=== PATIENT | male | born 1970 | race Hispanic/Latino ===

== ENCOUNTER 2019-08-17 18:16 | Emergency (ER) | payer OTHER ==
--- NOTE | 2019-08-17 20:03 | EDPHYS ---
Physician Documentation [facility] Name: Nellie Partida Age: 49 yrs Sex: Male : 1970 Arrival Date: 08/17/2019 Time: 18:17 Bed 18 Private MD: ED Physician Naveed Martinez HPI: 08/17 00:21 This 49 yrs old Male presents to ER via Ambulatory with complaints of Facial kb Bumps. 00:21 The patient presents with an abscess of the chin. Description: swollen. Onset: The kb symptoms/episode began/occurred last week. Possible cause(s): unknown. Associated signs and symptoms: Pertinent positives: swelling, Pertinent negatives: discharge, drainage, erythema, foreign body sensation, fever, headache, nausea, shortness of breath, vomiting. Modifying factors: the symptoms are alleviated by nothing, the symptoms are aggravated by nothing. Severity of symptoms: At their worst the symptoms were mild, in the emergency department the symptoms are unchanged. The patient has not experienced similar symptoms in the past. The patient has not recently seen a physician. Pt reports he noticed some bumps on his chin over the last week. States he was stung by a wasp on his upper lip last week. States it started out looking like ingrown hair so he plucked those. denies drainage or fever. concerned about infection. Historical: - Allergies: 08/16 18:35 No Known Allergies; iw - Home Meds: 18:35 unknown diabetic medication [Active]; iw - PMHx: 18:35 Diabetes - NIDDM; Kidney stones; iw - PSHx: 18:35 None; iw - Immunization history:: Adult Immunizations up to date. - Social history:: Smoking status: Patient reports the use of cigarette tobacco products, denies chronic smoking, but will smoke occasionally. ROS: 08/17 00:19 Constitutional: Negative for fever, chills, and weight loss, Cardiovascular: Negative kb for chest pain, palpitations, and edema, Respiratory: Negative for shortness of breath, cough, wheezing, and pleuritic chest pain, Abdomen/GI: Negative for abdominal pain, nausea, vomiting, diarrhea, and constipation, Back: Negative for injury and pain, MS/Extremity: Negative for injury and deformity, Neuro: Negative for headache, weakness, numbness, tingling, and seizure. Skin: Positive for abscess, of the chin. Exam: 00:19 Constitutional: This is a well developed, well nourished patient who is awake, alert, kb and in no acute distress. Head/Face: Normocephalic, atraumatic. Chest/axilla: Normal chest wall appearance and motion. Nontender with no deformity. No lesions are appreciated. Cardiovascular: Regular rate and rhythm with a normal S1 and S2. No gallops, murmurs, or rubs. Normal PMI, no JVD. No pulse deficits. Respiratory: Lungs have equal breath sounds bilaterally, clear to auscultation and percussion. No rales, rhonchi or wheezes noted. No increased work of breathing, no retractions or nasal flaring. Abdomen/GI: Soft, non-tender, with normal bowel sounds. No distension or tympany. No guarding or rebound. No evidence of tenderness throughout. MS/ Extremity: Pulses equal, no cyanosis. Neurovascular intact. Full, normal range of motion. Neuro: Awake and alert, GCS 15, oriented to person, place, time, and situation. Cranial nerves II-XII grossly intact. Motor strength 5/5 in all extremities. Sensory grossly intact. Cerebellar exam normal. Normal gait. 00:19 Skin: abscess, that is small, of the chin, 4 small areas of induration, no fluctuance or surrounding cellulitis. Vital Signs: 06/04 18:32 BP 153 / 93; Pulse 100; Resp 18 S; Temp 98.4; Pulse Ox 98% on R/A; Weight 104.33 kg; iw Height 5 ft. 9 in. (175.26 cm); 19:47 BP 133 / 93; Pulse 93; Resp 16 S; Pulse Ox 98% on R/A; ca1 18:32 Body Mass Index 33.96 (104.33 kg, 175.26 cm) iw MDM: 19:35 Patient medically screened. kb 20:01 Data reviewed: vital signs, nurses notes. Data interpreted: Pulse oximetry: on room air kb is 98 %. Interpretation: normal. Counseling: I had a detailed discussion with the patient and/or guardian regarding: the historical points, exam findings, and any diagnostic results supporting the discharge/admit diagnosis, the need for outpatient follow up, a family practitioner, to return to the emergency department if symptoms worsen or persist or if there are any questions or concerns that arise at home. Administered Medications: 20:07 Drug: Bactrim (160 mg-800 mg (DS) 1 tablet Route: PO; ca1 20:18 Follow up: Response: No adverse reaction ca1 Disposition: 08/17 01:52 Co-signature as Attending Physician, Naveed Martinez MD. pk Disposition: 08/17/19 20:02 Discharged to Home. Impression: Cutaneous abscess of face - chin. - Condition is Stable. - Discharge Instructions: Skin Abscess, [id number]. - Prescriptions for Bactrim DS 800- 160 mg Oral Tablet - take 1 tablet by ORAL route every 12 hours for 10 days; 20 tablet. - Medication Reconciliation Form, Thank You Letter, Antibiotic Education, Prescription Opioid Use form. - Follow up: Emergency Department; When: As needed; Reason: Worsening of condition. Follow up: Private Physician; When: 2 - 3 days; Reason: Recheck today's complaints, Continuance of care, Re-evaluation by your physician. Signatures: Maribell Hernandez, SENIOR SQL SERVER DBA-C SENIOR SQL SERVER DBA-Naveed Delgado MD MD pkl Mari Valdez RN RN iw Tika Ott RN RN ls4 Cheryle Hector RN RN ca1 Corrections: (The following items were deleted from the chart) 08/16 20:18 20:02 08/17/2019 20:02 Discharged to Home. Impression: Cutaneous abscess of face - ls4 chin. Condition is Stable. Forms are Medication Reconciliation Form, Thank You Letter, Antibiotic Education, Prescription Opioid Use. Follow up: Emergency Department; When: As needed; Reason: Worsening of condition. Follow up: Private Physician; When: 2 - 3 days; Reason: Recheck today's complaints, Continuance of care, Re-evaluation by your physician. kb
--- NOTE | 2019-08-17 20:03 | ER ---
Nurse's Notes [facility] Name: Nellie Partida Age: 49 yrs Sex: Male : 1970 Arrival Date: 08/17/2019 Time: 18:17 Bed 18 Private MD: Diagnosis: Cutaneous abscess of face-chin Presentation: 08/16 18:32 Chief complaint: Patient states: has bumps on chin X 3 days, thought it was ingrown iw hairs, tender to touch. Coronavirus screen: Proceed with normal triage. Patient denies a cough. Patient denies shortness of breath or difficulty breathing. Patient denies measured and/or subjective temperature greater than 100.4F prior to today's visit. Patient denies travel on a cruise ship or to a country the [facility] currently lists as an affected area. Patient denies contact with known and/or suspected case of COVID-19. Ebola Screen: Patient negative for fever greater than or equal to 101.5 degrees Fahrenheit, and additional compatible Ebola Virus Disease symptoms Patient denies exposure to infectious person. Patient denies travel to an Ebola-affected area in the 21 days before illness onset. No symptoms or risks identified at this time. Initial Sepsis Screen: Does the patient meet any 2 criteria? No. Patient's initial sepsis screen is negative. Does the patient have a suspected source of infection? No. Patient's initial sepsis screen is negative. Risk Assessment: Do you want to hurt yourself or someone else? Patient reports no desire to harm self or others. Onset of symptoms was August 14, 2019. 18:32 Method Of Arrival: Ambulatory 18:32 Acuity: SEBLE 4 iw Historical: - Allergies: 18:35 No Known Allergies; iw - Home Meds: 18:35 unknown diabetic medication [Active]; iw - PMHx: 18:35 Diabetes - NIDDM; Kidney stones; iw - PSHx: 18:35 None; iw - Immunization history:: Adult Immunizations up to date. - Social history:: Smoking status: Patient reports the use of cigarette tobacco products, denies chronic smoking, but will smoke occasionally. Screenin:43 Abuse screen: Denies threats or abuse. Denies injuries from another. Nutritional ca1 screening: No deficits noted. Tuberculosis screening: No symptoms or risk factors identified. Fall Risk None identified. Assessment: 19:43 General: Appears in no apparent distress. comfortable, Behavior is calm, cooperative, ca1 appropriate for age. Pain: Complains of pain in chin Pain began 2-3 days ago. Neuro: Level of Consciousness is awake, alert, obeys commands, Oriented to person, place, time, situation, Appropriate for age. Cardiovascular: Heart tones S1 S2 present Capillary refill < 3 seconds Patient's skin is warm and dry. Respiratory: Airway is patent Respiratory effort is even, unlabored, Respiratory pattern is regular, symmetrical, Breath sounds are clear bilaterally. GI: Abdomen is round non-distended, Bowel sounds present X 4 quads. Abd is soft and non tender X 4 quads. : No signs and/or symptoms were reported regarding the genitourinary system. EENT: No signs and/or symptoms were reported regarding the EENT system. Derm: Skin is intact, is healthy with good turgor, Skin is pink, warm \T\ dry. Rash noted that is red, raised, on chin. Musculoskeletal: Circulation, motion, and sensation intact. Capillary refill < 3 seconds. 20:18 Reassessment: Patient appears in no apparent distress at this time. Patient is alert, ca1 oriented x 3, equal unlabored respirations, skin warm/dry/pink. Vital Signs: 18:32 BP 153 / 93; Pulse 100; Resp 18 S; Temp 98.4; Pulse Ox 98% on R/A; Weight 104.33 kg; iw Height 5 ft. 9 in. (175.26 cm); 19:47 BP 133 / 93; Pulse 93; Resp 16 S; Pulse Ox 98% on R/A; ca1 18:32 Body Mass Index 33.96 (104.33 kg, 175.26 cm) iw ED Course: 18:17 Patient arrived in ED. ag5 18:33 Triage completed. iw 18:35 Arm band placed on. iw 19:35 Maribell Hernandez FNP-C is PHCP. kb 19:35 Naveed Martinez MD is Attending Physician. kb 19:37 Cheryle Hector, WHITNEY is Primary Nurse. ca1 19:43 Patient has correct armband on for positive identification. Bed in low position. Call ca1 light in reach. Side rails up X 1. Pulse ox on. NIBP on. 19:43 No provider procedures requiring assistance completed. Patient did not have IV access ca1 during this emergency room visit. Administered Medications: 20:07 Drug: Bactrim (160 mg-800 mg (DS) 1 tablet Route: PO; ca1 20:18 Follow up: Response: No adverse reaction ca1 Outcome: 20:02 Discharge ordered by . kathy 20:18 Patient left the ED. ls4 20:18 Discharged to home ambulatory. ca1 20:18 Condition: stable 20:18 Discharge instructions given to patient, Instructed on discharge instructions, follow up and referral plans. medication usage, Demonstrated understanding of instructions, follow-up care, medications, Prescriptions given X 1. Signatures: Maribell Hernandez, [employer]-C [employer]-CkMari Liu RN RN iw Tika Ott RN RN ls4 Cheryle Hector RN RN ca1 Jamshid Pelletier 5
[2019-08-17] MEDS ORDERED: SMZ./TMP. 800/160 MG TABLET ONE (20:23)
[2019-08-17 20:29] VITALS: TEMP 98.4; O2SAT 98
[2019-08-17 20:30] VITALS: BP 133/93
== END 2019-08-17 20:18 | disposition home or self-care (01) ==
LOC: ER 18:16
DX: L02.01 Cutaneous abscess of face (principal); F17.210 Nicotine dependence, cigarettes, uncomplicated
CPT/HCPCS: 99283

== ENCOUNTER 2019-09-18 09:39 | Emergency (ER) | payer OTHER ==
[2019-09-18] MEDS ORDERED: HYDROCODONE/CHLORPHEN 5 ML/OSYR ONE (10:58)
--- NOTE | 2019-09-18 11:42 | RAD REPORT ---
EXAM DESCRIPTION: RAD - Chest Single View - 09/18/2019 11:36 am CLINICAL HISTORY: COUGH Chest pain. COMPARISON: No comparisons FINDINGS: Portable technique limits examination quality. The lungs are grossly clear. The heart is normal in size. No displaced fractures. IMPRESSION: No acute intrathoracic process suspected.
--- NOTE | 2019-09-18 11:48 | ER ---
Nurse's Notes [facility] Name: Nellie Partida Age: 49 yrs Sex: Male : 1970 Arrival Date: 09/18/2019 Time: 09:43 Bed 19 Private MD: Diagnosis: Acute upper respiratory infection, unspecified Presentation: 09/17 09:52 Chief complaint: Patient states: headache, cough, subj fever, chills, sweats, body iw aches since Wednesday 7-3. Coronavirus screen: Proceed with normal triage. Patient reports a cough. Patient reports shortness of breath or difficulty breathing. Patient reports a measured and/or subjective temperature greater than 100.4F. Patient denies travel on a cruise ship or to a country the [facility] currently lists as an affected area. Patient denies contact with known and/or suspected case of COVID-19. Ebola Screen: Patient negative for fever greater than or equal to 101.5 degrees Fahrenheit, and additional compatible Ebola Virus Disease symptoms Patient denies exposure to infectious person. Patient denies travel to an Ebola-affected area in the 21 days before illness onset. No symptoms or risks identified at this time. Initial Sepsis Screen: Does the patient meet any 2 criteria? No. Patient's initial sepsis screen is negative. Does the patient have a suspected source of infection? No. Patient's initial sepsis screen is negative. Risk Assessment: Do you want to hurt yourself or someone else? Patient reports no desire to harm self or others. Onset of symptoms was September 15, 2019. 09:52 Method Of Arrival: Ambulatory iw 09:52 Acuity: SEBLE 4 iw Triage Assessment: 10:00 General: Appears in no apparent distress. uncomfortable, obese, Behavior is calm, dm5 cooperative, appropriate for age. Pain: Denies pain. EENT: Reports nasal congestion. Neuro: No deficits noted. Cardiovascular: No deficits noted. Respiratory: Reports cough that is productive. GI: No signs and/or symptoms were reported involving the gastrointestinal system. : No signs and/or symptoms were reported regarding the genitourinary system. Derm: No deficits noted. Musculoskeletal: No deficits noted. Historical: - Allergies: 10:11 No Known Allergies; iw - Home Meds: 10:11 unknown diabetic medication [Active]; iw - PMHx: 10:11 Diabetes - NIDDM; Kidney stones; iw - PSHx: 10:11 None; iw - Immunization history:: Adult Immunizations not up to date. - Social history:: Smoking status: Patient reports the use of cigarette tobacco products, denies chronic smoking, but will smoke occasionally. Screenin:18 Abuse screen: Denies threats or abuse. Denies injuries from another. Nutritional dm5 screening: No deficits noted. Tuberculosis screening: No symptoms or risk factors identified. Fall Risk None identified. Assessment: 10:15 General: SEE TRIAGE NOTE. dm5 12:18 Reassessment: PT D/C HOME AMBULATORY WITH FAMILY, DX WITH VIRAL SYNDROME. dm5 Vital Signs: 09:52 BP 144 / 86; Pulse 88; Resp 16; Temp 98.2; Pulse Ox 98% ; Weight 104.33 kg; Height 5 iw ft. 9 in. (175.26 cm); 12:18 BP 137 / 75; Pulse 79; Resp 17; Temp 98.9; Pulse Ox 99% ; dm5 09:52 Body Mass Index 33.96 (104.33 kg, 175.26 cm) iw ED Course: 09:43 Patient arrived in ED. mr 09:45 Wiley Ellis, WHITNEY is Primary Nurse. bp 10:02 Gregory Cox NP is PHCP. pm1 10:02 Nadeem Caldwell MD is Attending Physician. pm1 10:11 Triage completed. iw 10:12 Arm band placed on. iw 11:36 Chest Single View XRAY In Process Unspecified. EDMS 12:18 Patient has correct armband on for positive identification. Bed in low position. Call dm5 light in reach. Side rails up X2. 12:18 No provider procedures requiring assistance completed. Patient did not have IV access dm5 during this emergency room visit. Administered Medications: 10:51 Drug: Tussionex Pennkinetic ER 5 ml Route: PO; bp 12:20 Follow up: Response: No adverse reaction dm5 Outcome: 11:48 Discharge ordered by . pm1 12:18 Discharged to home ambulatory. dm5 12:18 Condition: stable 12:18 Discharge instructions given to patient, Instructed on discharge instructions, follow up and referral plans. medication usage, Demonstrated understanding of instructions, follow-up care, medications, Prescriptions given X 2. 12:20 Patient left the ED. dm5 Addendum: 09/20/2019 18:04 Addendum: COVID-19 Result: Positive result giiven to ED physician to notify pt. h b Physician: Benito Motta MD Physician was able to contact pt and pt was notified of positive COVID-19 swab result. Physician answered pt questions. 18:07 Addendum: Other Guaifenesin refill called to [facility] for Dr. Motta. h b Signatures: Dispatcher [employer] EDIA Gladis Nagy, RN RN dm5 Garcia Mirna mr Mari Valdez RN WHITNEY Gregory Cox, SPECIAL EDUCATION CLASSROOM AIDE SPECIAL EDUCATION CLASSROOM AIDE pm1 Shante Vogel RN RN Wiley Ellis RN RN bp Corrections: (The following items were deleted from the chart) 09/17 12:19 12:18 General: SEE TRIAGE NOTE. dm5 dm5 09/19 18:33 18:04 Addendum: COVID-19 Result: Positive result giiven to ED physician to notify pt. Physician: Benito Motta MD
--- NOTE | 2019-09-18 11:49 | EDPHYS ---
Physician Documentation [facility] Name: Nellie Partida Age: 49 yrs Sex: Male : 1970 Arrival Date: 09/18/2019 Time: 09:43 Bed 19 Private MD: ED Physician Nadeem Caldwell HPI: 09/17 10:38 This 49 yrs old Male presents to ER via Ambulatory with complaints of Cough, pm1 Chest Congestion. 10:38 The patient or guardian reports cough, with productive sputum, that is yellow, from pm1 post nasal drainage, flu symptoms, body aches, fever, chills, diarrhea. Onset: The symptoms/episode began/occurred 3 day(s) ago. Severity of symptoms: in the emergency department the symptoms are unchanged. Modifying factors: The symptoms are alleviated by nothing, the symptoms are aggravated by nothing. Associated signs and symptoms: Pertinent positives: rhinorrhea, sore throat, shortness of breath last night, Pertinent negatives: chest pain, ear ache. 10:38 The patient has not recently seen a physician. pm1 Historical: - Allergies: 10:11 No Known Allergies; iw - Home Meds: 10:11 unknown diabetic medication [Active]; iw - PMHx: 10:11 Diabetes - NIDDM; Kidney stones; iw - PSHx: 10:11 None; iw - Immunization history:: Adult Immunizations not up to date. - Social history:: Smoking status: Patient reports the use of cigarette tobacco products, denies chronic smoking, but will smoke occasionally. ROS: 10:38 Eyes: Negative for injury, pain, redness, and discharge. pm1 10:38 Neck: Negative for injury, pain, and swelling, Cardiovascular: Negative for chest pain, palpitations, and edema. 10:38 Back: Negative for injury and pain, : Negative for injury, bleeding, discharge, and swelling, MS/Extremity: Negative for injury and deformity, Skin: Negative for injury, rash, and discoloration, Neuro: Negative for headache, weakness, numbness, tingling, and seizure. 10:38 Constitutional: Positive for body aches, chills, fever, Negative for poor PO intake. 10:38 ENT: Positive for rhinorrhea, sinus congestion, sinus pain, sore throat, Negative for drainage from ear(s), ear pain. 10:38 Respiratory: Positive for cough, shortness of breath, Negative for dyspnea on exertion, wheezing. 10:38 Abdomen/GI: Positive for diarrhea, x 2, Negative for abdominal pain, nausea, vomiting, constipation. Exam: 10:38 Constitutional: This is a well developed, well nourished patient who is awake, alert, pm1 and in no acute distress. Head/Face: Normocephalic, atraumatic. Eyes: Pupils equal round and reactive to light, extra-ocular motions intact. Lids and lashes normal. Conjunctiva and sclera are non-icteric and not injected. Cornea within normal limits. Periorbital areas with no swelling, redness, or edema. ENT: Nares patent. No nasal discharge, no septal abnormalities noted. Tympanic membranes are normal and external auditory canals are clear. Oropharynx with no redness, swelling, or masses, exudates, or evidence of obstruction, uvula midline. Mucous membranes moist. Neck: Trachea midline, no thyromegaly or masses palpated, and no cervical lymphadenopathy. Supple, full range of motion without nuchal rigidity, or vertebral point tenderness. No Meningismus. Chest/axilla: Normal chest wall appearance and motion. Nontender with no deformity. No lesions are appreciated. 10:38 Back: No spinal tenderness. No costovertebral tenderness. Full range of motion. Skin: Warm, dry with normal turgor. Normal color with no rashes, no lesions, and no evidence of cellulitis. MS/ Extremity: Pulses equal, no cyanosis. Neurovascular intact. Full, normal range of motion. 10:38 Cardiovascular: Rate: normal, Rhythm: regular, Pulses: no pulse deficits are appreciated. 10:38 Respiratory: Exam negative for acute changes, respiratory distress, shortness of breath, wheezing. 10:38 Abdomen/GI: Inspection: abdomen appears normal, Palpation: abdomen is soft and non-tender, in all quadrants. 10:38 Neuro: Exam negative for acute changes, Orientation: is normal, Mentation: is normal, Motor: is normal, moves all fours, Sensation: is normal, no obvious gross deficits. Vital Signs: 09:52 BP 144 / 86; Pulse 88; Resp 16; Temp 98.2; Pulse Ox 98% ; Weight 104.33 kg; Height 5 iw ft. 9 in. (175.26 cm); 12:18 BP 137 / 75; Pulse 79; Resp 17; Temp 98.9; Pulse Ox 99% ; dm5 09:52 Body Mass Index 33.96 (104.33 kg, 175.26 cm) iw MDM: 10:02 Patient medically screened. pm1 11:47 Data reviewed: vital signs. Data interpreted: Pulse oximetry: on room air is 98 %. pm1 Interpretation: normal. Counseling: I had a detailed discussion with the patient and/or guardian regarding: the historical points, exam findings, and any diagnostic results supporting the discharge/admit diagnosis, lab results, radiology results, the need for outpatient follow up, to return to the emergency department if symptoms worsen or persist or if there are any questions or concerns that arise at home. 09/17 10:03 Order name: COVID-19 pm1 09/17 10:03 Order name: Flu; Complete Time: 11:47 pm1 09/17 10:03 Order name: Strep; Complete Time: 11:08 pm1 09/17 10:43 Order name: Chest Single View XRAY; Complete Time: 11:47 pm1 09/17 11:07 Order name: Throat Culture EDNY 09/17 10:03 Order name: Droplet/Contact Precautions; Complete Time: 10:12 pm1 09/17 10:03 Order name: Labs collected and sent; Complete Time: 10:33 pm1 09/17 10:03 Order name: O2 Per Protocol; Complete Time: 10:13 pm1 Administered Medications: 10:51 Drug: Tussionex Pennkinetic ER 5 ml Route: PO; bp 12:20 Follow up: Response: No adverse reaction dm5 Disposition: 20:53 Co-signature as Attending Physician, Nadeem Caldwell MD I agree with the assessment and billie plan of care. Disposition: 09/18/19 11:48 Discharged to Home. Impression: Acute upper respiratory infection, unspecified. - Condition is Stable. - Discharge Instructions: COVID-19. - Prescriptions for Guaifenesin AC 10- 100 mg/5 mL Oral Liquid - take 10 milliliter by ORAL route every 4 hours As needed; 240 milliliter. - Work release form, Medication Reconciliation Form, Thank You Letter, Antibiotic Education, Prescription Opioid Use form. - Follow up: Emergency Department; When: As needed; Reason: Worsening of condition. Follow up: Private Physician; When: 2 - 3 days; Reason: Recheck today's complaints, Continuance of care, Re-evaluation by your physician. - Problem is new. - Symptoms have improved. Signatures: Dispatcher [employer] Gladis Rodriguez, WHITNEY RN Nadeem Cantrell MD MD cha Williams, Irene, RN RN iw Marinas, Patrick, CARBON CLEANER CARBON CLEANER pm1 Wiley Ellis RN RN bp Corrections: (The following items were deleted from the chart) 12:20 11:48 09/18/2019 11:48 Discharged to Home. Impression: Acute upper respiratory dm5 infection, unspecified. Condition is Stable. Forms are Medication Reconciliation Form, Thank You Letter, Antibiotic Education, Prescription Opioid Use. Follow up: Emergency Department; When: As needed; Reason: Worsening of condition. Follow up: Private Physician; When: 2 - 3 days; Reason: Recheck today's complaints, Continuance of care, Re-evaluation by your physician. Problem is new. Symptoms have improved. pm1
[2019-09-18 12:30] VITALS: BP 137/75; TEMP 98.9; O2SAT 99
== END 2019-09-18 12:20 | disposition home or self-care (01) ==
LOC: ER 09:39
DX: U07.1 COVID-19 (principal); J06.9 Acute upper respiratory infection, unspecified; E11.9 Type 2 diabetes mellitus without complications
CPT/HCPCS: 87070; 87081; 87804 ×2; 71045; 99283; U0001

== ENCOUNTER 2020-02-04 12:06 | Emergency (ER) | payer OTHER ==
[2020-02-04 12:45] LABS: Absolute Lymphocytes (CBC) 1.9 K/uL (0.7-4.9); Basophils % 0.7 % (0-1.3); Hematocrit 41.1 % (39.6-49.0); Lymphocytes % 25.9 % (15.3-44.8); RBC Red Blood Cell Count 4.88 M/uL (4.33-5.43)
[2020-02-04 12:56] LABS: BUN Blood Urea Nitrogen 16 mg/dL (7-18); Bicarbonate 25 mmol/L (21-32); Glucose Level 299 mg/dL (74-106); NT PRO-BNP 18 pg/mL (<125); Sodium Level 136 mmol/L (136-145); Troponin (Emerg Dept Use Only) < 0.02 ng/mL (0.0-0.045)
[2020-02-04 12:58] LABS: Potassium 4.1 mmol/L (3.5-5.1)
--- NOTE | 2020-02-04 13:01 | RAD REPORT ---
EXAM DESCRIPTION: RAD - Chest Single View - 02/04/2020 12:47 pm CLINICAL HISTORY: CHEST PAIN Chest pain. COMPARISON: Chest Single View dated 09/18/2019 FINDINGS: Portable technique limits examination quality. The lungs are grossly clear. The heart is normal in size. No displaced fractures. IMPRESSION: No acute intrathoracic process suspected.
--- NOTE | 2020-02-04 13:38 | RAD REPORT ---
EXAM DESCRIPTION: CT - Chest For Pe Angio - 02/04/2020 1:30 pm CLINICAL HISTORY: Chest pain. right scapular pain;Chest pain COMPARISON: No comparisons TECHNIQUE: CT angiogram of the pulmonary arteries was performed with MIP. All CT scans are performed using dose optimization technique as appropriate and may include automated exposure control or mA/KV adjustment according to patient size. FINDINGS: No evidence of pulmonary thromboembolism. No acute aortic finding demonstrated. The lungs are clear. Mild bilateral gynecomastia. No significant pericardial or pleural fluid. No concerning bony finding. IMPRESSION: No evidence of pulmonary thromboembolism. No acute lung findings.
--- NOTE | 2020-02-04 14:02 | EDPHYS ---
Physician Documentation [facility] Name: Nellie Partida Age: 49 yrs Sex: Male : 1970 Arrival Date: 02/04/2020 Time: 12:09 Bed 5 Private MD: ED Physician Nuno Camarillo HPI: 02/03 13:02 This 49 yrs old Male presents to ER via Ambulatory with complaints of Back rn Pain. 13:02 The patient presents with pain that is acute. The symptoms are located in the right rn subscapular area. Onset: The symptoms/episode began/occurred 2 day(s) ago. The pain radiates to the chest. Associated signs and symptoms: Pertinent negatives: abdominal pain, dysuria, fever, hematuria, incontinence, nausea, numbness, tingling, urinary retention, vomiting, weakness. The problem was sustained from unknown cause. Modifying factors: The patient symptoms are alleviated by nothing, the patient symptoms are aggravated by deep breath. Severity of symptoms: At their worst the symptoms were mild, in the emergency department the symptoms are unchanged. The patient has not experienced similar symptoms in the past. The patient has not recently seen a physician. Reports right subscapular pain, no trauma, for 2 days, no sob or productive cough, no fever, no hx of lung or heart problems. Worse with palpation and deep breath. No abd pain. Diagnosed with COVID in August, but feels like got over it completely. . Historical: - Allergies: 12:16 No Known Allergies; sv - PMHx: 12:16 Diabetes - NIDDM; Kidney stones; sv - PSHx: 12:16 None; sv - Immunization history:: Flu vaccine is not up to date. - Social history:: Smoking status: Patient reports the use of cigarette tobacco products, denies chronic smoking, but will smoke occasionally. - Family history:: not pertinent. - Hospitalizations: : No recent hospitalization is reported. ROS: 13:02 Constitutional: Negative for fever, chills, and weight loss, Eyes: Negative for injury, rn pain, redness, and discharge, Neck: Negative for injury, pain, and swelling, Cardiovascular: Negative for palpitations, and edema, Respiratory: Negative for shortness of breath, cough, wheezing Abdomen/GI: Negative for abdominal pain, nausea, vomiting, diarrhea, and constipation, Back: + right subscapular pain : Negative for injury, bleeding, discharge, and swelling, MS/Extremity: Negative for injury and deformity, Skin: Negative for injury, rash, and discoloration, Neuro: Negative for headache, weakness, numbness, tingling, and seizure. Exam: 12:39 ECG was reviewed by the Attending Physician. rn 13:02 Constitutional: This is a well developed, well nourished patient who is awake, alert, rn and in no acute distress. Head/Face: Normocephalic, atraumatic. Eyes: Pupils equal round and reactive to light, extra-ocular motions intact. Lids and lashes normal. Conjunctiva and sclera are non-icteric and not injected. Cornea within normal limits. Periorbital areas with no swelling, redness, or edema. Cardiovascular: Regular rate and rhythm, no JVD. No pulse deficits. Respiratory: Speaking full sentences. No increased work of breathing, no retractions or nasal flaring. Abdomen/GI: soft, non-tender Back: No spinal tenderness. No costovertebral tenderness. Full range of motion. Skin: Warm, dry MS/ Extremity: Pulses equal, no cyanosis. Neurovascular intact. Full, normal range of motion. Equal circumference. Neuro: Awake and alert, GCS 15 Vital Signs: 12:14 BP 166 / 96; Pulse 78; Resp 16; Temp 97; Pulse Ox 99% ; Weight 99.79 kg; Height 5 ft. 9 sv in. (175.26 cm); Pain 8/10; 12:55 BP 138 / 114; Pulse 82; Resp 20; Pulse Ox 98% on R/A; vg1 13:52 BP 125 / 81; Pulse 85; Resp 18; Pulse Ox 99% on R/A; vg1 12:14 Body Mass Index 32.49 (99.79 kg, 175.26 cm) sv MDM: 12:13 Patient medically screened. rn 13:59 Differential diagnosis: arthritis, Osteoarthritis sprain, PE, pleurisy, rn musculoskeletal. Data reviewed: vital signs, nurses notes, lab test result(s), EKG, radiologic studies, CT scan, plain films, and as a result, I will discharge patient. Counseling: I had a detailed discussion with the patient and/or guardian regarding: the historical points, exam findings, and any diagnostic results supporting the discharge/admit diagnosis, lab results, radiology results, the need for outpatient follow up, to return to the emergency department if symptoms worsen or persist or if there are any questions or concerns that arise at home. Response to treatment: the patient's symptoms have mildly improved after treatment, and as a result, I will discharge patient. Special discussion: Based on the patient's history, exam, and Dx evaluation, there is no indication for emergent intervention or inpatient Tx. It is understood by the patient/guardian that if the Sx's persist or worsen they need to return immediately for re-evaluation. I discussed with the patient/guardian in detail that at this point there is no indication for admission to the hospital. It is understood, however, that if the symptoms persist or worsen the patient needs to return immediately for re-evaluation. ED course: No acute findings on bloodwork/ecg/CT chest/cxr, will dc home. Normal vitals. . 02/03 12:19 Order name: Basic Metabolic Panel; Complete Time: 13:05 rn 02/03 12:19 Order name: CBC with Diff; Complete Time: 13:05 rn 02/03 12:19 Order name: NT PRO-BNP; Complete Time: 13: rn 02/03 12:19 Order name: Troponin (emerg Dept Use Only); Complete Time: 13:05 rn 02/03 12:19 Order name: XRAY Chest (1 view); Complete Time: 13:05 rn 02/03 12:19 Order name: CT Chest For PE Angio; Complete Time: 13:54 rn 02/03 12:19 Order name: EKG; Complete Time: 12:20 rn 02/03 12:19 Order name: Cardiac monitoring; Complete Time: 12:25 rn 02/03 12:19 Order name: EKG - Nurse/Tech; Complete Time: 12:25 rn 02/03 12:19 Order name: IV Saline Lock; Complete Time: 12: rn 02/03 12:19 Order name: Labs collected and sent; Complete Time: 12: rn 02/03 12:19 Order name: O2 Per Protocol; Complete Time: 12: rn 02/03 12:19 Order name: O2 Sat Monitoring; Complete Time: 12:26 rn EC:39 Rate is 80 beats/min. Rhythm is regular. QRS [place] is Normal. AL interval is normal. QRS rn interval is normal. QT interval is normal. No Q waves. T waves are Normal. No ST changes noted. Clinical impression: Normal ECG. Interpreted by me. Reviewed by me. Administered Medications: No medications were administered Disposition: 02/04/20 14:01 Discharged to Home. Impression: Chest pain, unspecified, Back pain. - Condition is Stable. - Discharge Instructions: Back Pain, Adult, Nonspecific Chest Pain. - Medication Reconciliation Form, Thank You Letter, Antibiotic Education, Prescription Opioid Use form. - Follow up: Private Physician; When: As needed; Reason: Recheck today's complaints, Re-evaluation by your physician. - Problem is new. - Symptoms have improved. Signatures: Dispatcher [employer] EDAmanda Tilley RN RN sv Nieto, Roman, MD MD rn Garcia, Victoria, RN RN vg1 Corrections: (The following items were deleted from the chart) 14:13 14:01 02/04/2020 14:01 Discharged to Home. Impression: Chest pain, unspecified; Back vg1 pain. Condition is Stable. Forms are Medication Reconciliation Form, Thank You Letter, Antibiotic Education, Prescription Opioid Use. Follow up: Private Physician; When: As needed; Reason: Recheck today's complaints, Re-evaluation by your physician. Problem is new. Symptoms have improved. rn
--- NOTE | 2020-02-04 14:02 | ER ---
Nurse's Notes [facility] Name: Nellie Partida Age: 49 yrs Sex: Male : 1970 Arrival Date: 02/04/2020 Time: 12:09 Bed 5 Private MD: Diagnosis: Chest pain, unspecified;Back pain Presentation: 02/03 12:14 Chief complaint: Patient states: right upper back pain that radiates to the right front sv chest area, worsens with deep breathing. Reports at first it felt like he had a coin stuck on him and had his family massage it for him but did not help. Was COVID-19 + in August 2019. Coronavirus screen: Client denies travel out of the [place] in the last 14 days. At this time, the client does not indicate any symptoms associated with coronavirus-19. Ebola Screen: No symptoms or risks identified at this time. Initial Sepsis Screen: Does the patient meet any 2 criteria? No. Patient's initial sepsis screen is negative. Does the patient have a suspected source of infection? No. Patient's initial sepsis screen is negative. Risk Assessment: Do you want to hurt yourself or someone else? Patient reports no desire to harm self or others. Onset of symptoms was January 2020. 12:14 Method Of Arrival: Ambulatory sv 12:14 Acuity: SEBLE 3 sv Historical: - Allergies: 12:16 No Known Allergies; sv - PMHx: 12:16 Diabetes - NIDDM; Kidney stones; sv - PSHx: 12:16 None; sv - Immunization history:: Flu vaccine is not up to date. - Social history:: Smoking status: Patient reports the use of cigarette tobacco products, denies chronic smoking, but will smoke occasionally. - Family history:: not pertinent. - Hospitalizations: : No recent hospitalization is reported. Screenin:15 Abuse screen: Denies threats or abuse. Nutritional screening: No deficits noted. vg1 Tuberculosis screening: No symptoms or risk factors identified. Fall Risk No fall in past 12 months (0 pts). No secondary diagnosis (0 pts). IV access (20 points). Ambulatory Aid- None/Bed Rest/Nurse Assist (0 pts). Gait- Normal/Bed Rest/Wheelchair (0 pts) Mental Status- Oriented to own ability (0 pts). Total Horvath Fall Scale indicates No Risk (0-24 pts). Assessment: 12:15 General: Appears in no apparent distress. comfortable, Behavior is calm, cooperative. vg1 Pain: Complains of pain in Right upper back Pain radiates to right upper chest Pain currently is 8 out of 10 on a pain scale. Neuro: Level of Consciousness is awake, alert, obeys commands, Oriented to person, place, time, situation. Cardiovascular: Capillary refill < 3 seconds Patient's skin is warm and dry. Respiratory: Reports cough that is non-productive, Airway is patent Respiratory effort is even, unlabored, Respiratory pattern is regular, symmetrical. GI: No signs and/or symptoms were reported involving the gastrointestinal system. : No signs and/or symptoms were reported regarding the genitourinary system. EENT: No signs and/or symptoms were reported regarding the EENT system. Derm: Skin is pink, warm \\T\\ dry. Musculoskeletal: Range of motion: intact in all extremities. 12:15 Respiratory: Reports pain with respiration Breath sounds are clear bilaterally. vg1 12:15 Cardiovascular: Edema is absent. in JOEL lower extremities. vg1 13:51 Reassessment: Patient appears in no apparent distress at this time. No changes from vg1 previously documented assessment. Patient and/or family updated on plan of care and expected duration. Pain level reassessed. Patient is alert, oriented x 3, equal unlabored respirations, skin warm/dry/pink. Patient states "feels hot and was sweating a bit ago". Notified Provider. Vital Signs: 12:14 BP 166 / 96; Pulse 78; Resp 16; Temp 97; Pulse Ox 99% ; Weight 99.79 kg; Height 5 ft. 9 sv in. (175.26 cm); Pain 8/10; 12:55 BP 138 / 114; Pulse 82; Resp 20; Pulse Ox 98% on R/A; vg1 13:52 BP 125 / 81; Pulse 85; Resp 18; Pulse Ox 99% on R/A; vg1 12:14 Body Mass Index 32.49 (99.79 kg, 175.26 cm) sv ED Course: 12:09 Patient arrived in ED. mr 12:11 Lenore Guadarrama RN is Primary Nurse. vg1 12:13 Nuno Camarillo MD is Attending Physician. rn 12:15 Patient has correct armband on for positive identification. Bed in low position. Call vg1 light in reach. monitor and storage bin tender on. Pulse ox on. NIBP on. Door closed. 12:16 Triage completed. sv 12:16 ED physician to see patient. sv 12:16 Arm band placed on Patient placed in an exam room, on a stretcher. sv 12:24 Initial lab(s) drawn, by me, sent to lab. Inserted saline lock: 20 gauge in left dh3 forearm, using aseptic technique. Blood collected. 12:47 XRAY Chest (1 view) In Process Unspecified. EDMS 13:30 CT Chest For PE Angio In Process Unspecified. EDMS 14:08 No provider procedures requiring assistance completed. IV discontinued, intact, vg1 bleeding controlled, No redness/swelling at site. Pressure dressing applied. Administered Medications: No medications were administered Outcome: 14:01 Discharge ordered by . rn 14:10 Discharged to home vg1 14:10 Condition: good 14:10 Discharge instructions given to patient, Instructed on discharge instructions, follow up and referral plans. Demonstrated understanding of instructions, follow-up care. 14:13 Patient left the ED. vg1 Signatures: Dispatcher [employer] EDNV Amanda Valenzuela, RN RN Mirna Kim Roman, MD MD rn Herrera, Deanna formerly [facility] Lenore Guadarrama, RN RN vg1 Corrections: (The following items were deleted from the chart) 12:29 12:15 Respiratory: Breath sounds are clear bilaterally. vg1 vg1
[2020-02-04 18:28] VITALS: TEMP 97
[2020-02-04 18:36] VITALS: BP 125/81; O2SAT 99
== END 2020-02-04 14:13 | disposition home or self-care (01) ==
LOC: ER 12:06
DX: R07.9 Chest pain, unspecified (principal); F17.210 Nicotine dependence, cigarettes, uncomplicated; Z86.19 Personal history of other infectious and parasitic diseases
CPT/HCPCS: 93005; 85025; 80048; 36415; 84484; 83880; 71275; 71045; 99284; Q9967